=== PATIENT | male | born 2000 | race African-American/Black ===

== ENCOUNTER 2019-07-22 19:44 | Emergency (ER) | payer SELFPAY ==
--- NOTE | 2019-07-22 23:48 | PC.NURSE ---
I did not see this patient, registered for [facility], due to patient being discharged previous to discharge.
== END 2019-07-22 20:18 | disposition left against medical advice (07) ==
LOC: ER 23:47
PROVIDERS: Emergency Provider Emergency Medicine
DX: Z53.21 Procedure and treatment not carried out due to patient leaving prior to being seen by health care provider (principal)
CPT/HCPCS: 99281

== ENCOUNTER 2019-07-23 16:26 | Emergency (ER) | payer SELFPAY ==
[2019-07-23 17:47] VITALS: BP 121/73; RESP 16; TEMP 36.7; O2SAT 100; BMI 20.9
[2019-07-23 18:41] LABS: Add Urine Microscopic? NO
[2019-07-23 19:15] LABS: Bilirubin Urine Neg (NEGATIVE); Blood Urine Neg (Negative); Glucose Urine UA Norm (Normal); Ketones Urine 1+ (Negative); Leukocyte Esterase Urine Negative (Negative); Nitrate Urine Negative (Negative); Protein Urine Neg (Negative); Urine Appearance Clear (CLEAR); Urine Color Yellow (Yellow); Urobilinogen Urine Norm (Negative); pH Urine 6 (5-7)
== END 2019-07-23 21:13 | disposition left against medical advice (07) ==
PROVIDERS: Emergency Medicine; Emergency Provider Emergency Medicine
DX: Z53.21 Procedure and treatment not carried out due to patient leaving prior to being seen by health care provider (principal)
CPT/HCPCS: 81003; 99281

== ENCOUNTER 2019-07-24 14:53 | Emergency (ER) | payer SELFPAY ==
[2019-07-24 14:55] VITALS: BP 116/77; PULSE 71; RESP 16; TEMP 36.8; O2SAT 100; BMI 20.9
--- NOTE | 2019-07-24 15:11 | W.ED.MALEGU ---
HPI - Male Genitourinary General: Chief complaint: Urogenital-Male Stated complaint: Discharge Time Seen by Provider: 07/24/19 15:11 Source: patient Mode of arrival: ambulatory Limitations: no limitations History of Present Illness: HPI Narrative: clear to yellow penile drainage x 4 days; reports dysuria; no rashes/lesions; admits to new sexual partner over the past 2-3 wks; no testicular pain/swelling/redness/warmth Complaint: penile discharge, dysuria and possible STD exposure Onset (ago): day(s) Location: penis Relieving factors: none Exacerbating factors: none Associated symptoms: Reports no associated symptoms and dysuria Review of Systems Const: Denies: fever, chills or body aches ENMT: Denies: throat pain, painful swallowing or oral sores/lesions : Reports: painful urination and penile discharge; Denies: difficulty urinating, urinary frequency, urinary urgency, urinary hesitancy, urinary dribbling, genital pain, genital lesion, testicular pain, testicular mass, scrotal swelling, difficulty with ejactulations, painful ejaculations, blood in semen or erectile dysfunction Skin/Breast: Denies: rash, sores or new lesion PFSH ED PFSH: Statuses (acute, chronic, etc) shown below reflect problem list status as previously entered and may not be historically accurate Social History Smoking and tobacco status: never smoked Physical Exam Const: COMMON NORMALS: no apparent distress, average body habitus, oriented x3, healthy appearing, alert and well nourished GI: COMMON NORMALS: normal to inspection, nondistended, normoactive bowel sounds, soft to palpation and non-tender PALPATION: Yes soft : COMMON NORMALS: Yes testes normal, Yes scrotum normal and Yes no scrotal swelling PENIS: normal penis MEATUS: meatal discharge Neuro: COMMON NORMALS: oriented x3 SENSORIUM/ORIENTATION: Yes alert Skin: COMMON NORMALS: no rashes or lesions noted GENERAL SKIN EXAM: no rashes or lesions noted Course Vital Signs: Vital signs: Vital Signs Temperature 98.3 F 07/24/19 14:55 Pulse Rate 71 07/24/19 14:55 Respiratory Rate 16 07/24/19 14:55 Blood Pressure 116/77 07/24/19 14:55 Pulse Oximetry 100 07/24/19 14:55 Discharge Plan Discharge Patient Disposition: Home, Self-Care Clinical Impression: Discharge from penis Condition: Stable Discharge Orders: Discharge Order (Routine); Ordered 07/24/19 Ordered By: Tawana Sun Discharge Diet: Usual diet Discharge Activity: Resume usual activity Activity Restrictions/Additional Instructions: Call medical records in 2-3 days for results. No sexual activity until you get results-fi positive, [facility] make sure you cleared infection. If positive, you need to inform any sexual partners you have had. Coding Level of Care Code ED Certified Surgical First Assistant for Panfilo Rodriguez Exam Problem Focused
[2019-07-24] MEDS: cefTRIAXone 1,000 mg SDV 250 MG IM (15:49)
[2019-07-24] MEDS: lidocaine 1% INJ 20 mL IM (15:52)
[2019-07-24] MEDS: azithromycin 250 mg Tablet 1000 MG PO (16:03)
[2019-07-24 16:30] VITALS: BP 111/63; PULSE 82; RESP 14; TEMP 36.8
[2019-07-24 16:32] VITALS: BP 111/63; PULSE 82; RESP 14; TEMP 36.8; O2SAT 98
== END 2019-07-24 16:33 | disposition home or self-care (01) ==
PROVIDERS: Emergency Provider Physician Assistant
DX: R36.9 Urethral discharge, unspecified (principal)
CPT/HCPCS: 87491; 87591; 96372; 99282; J0696; J2001; Q0144

== ENCOUNTER 2019-07-26 17:57 | Emergency (ER) | payer SELFPAY ==
[2019-07-26 18:07] VITALS: BP 102/72; PULSE 79; RESP 17; TEMP 36.4; O2SAT 100; BMI 20.9
--- NOTE | 2019-07-26 18:24 | ED_ITS ---
HPI - Neck Pain/Injury General: Chief Complaint: Neck Pain/Injury Stated Complaint: lip lac Time Seen by Provider: 07/26/19 18:20 History of Present Illness: HPI Narrative: Patient ambulates in with complaint of neck and shoulder pain. Happened about 20 minutes ago. Patient states that he was playing football and somebody hit him in his head that was wearing a helmet while he did not have a helmet on. Said his neck hurt immediately. Denies LOC nausea or vomiting or vision changes. Does not have a headache. Does have an abrasion to his lower lip. complaint: neck pain and neck injury Onset (ago): minute(s) Place: school Radiation: right shoulder and left shoulder Severity: mild Severity scale (1-10): 3 Quality: dull Duration: constant Relieving factors: none Exacerbating factors: none Associated symptoms: Denies headache(s) or nausea Treatments prior to arrival: cervical collar Review of Systems Const: Denies: fever, chills or body aches Eyes: Denies: change in vision or blurry vision ENMT: Reports: other (Lower lip laceration); Denies: throat pain or nasal congestion Card: Denies: chest pain or shortness of breath on exertion Resp: Denies: shortness of breath, productive cough or non-productive cough GI: Denies: abdominal pain, nausea or vomiting : Denies: difficulty urinating Musc: Reports: other (Neck pain and bilateral trapezius pain); Denies: extremity pain Skin/Breast: Denies: rash Neuro: Denies: headache Psych: Denies: anxiety or depression Brad/Lymph: Denies: easy bruising PFSH ED PFSH: Statuses (acute, chronic, etc) shown below reflect problem list status as previously entered and may not be historically accurate Social History Smoking and tobacco status: never smoked Physical Exam Const: COMMON NORMALS: no apparent distress, average body habitus and oriented x3 HENMT: COMMON NORMALS: normocephalic HEAD & SCALP: normal to inspection and normocephalic FACE & SINUS: normal facial exam TEETH & GINGIVA: Yes other (Lower lip with abrasion to center no laceration.) Eye: COMMON NORMALS: conjunctivae normal GENERAL EYE: normal appearance of both eyes CONJUNCTIVA: Yes conjunctivae normal Neck/C-Spine: COMMON NORMALS: no JVD Chest: COMMONS NORMALS: inspection of chest normal Resp: COMMON NORMALS: normal respiratory effort and clear to auscultation bilaterally AUSCULTATION: clear to auscultation bilaterally Cardio: COMMON NORMALS: no JVD, regular rate and regular rhythm RATE: regular rate RHYTHM: regular rhythm GI: COMMON NORMALS: normal to inspection, nondistended, normoactive bowel sounds Back/Pelvis: OTHER: Tender to the trapezius bilateral no cervical spine pain. Extremity: COMMON NORMALS: normal to inspection and full ROM Neuro: COMMON NORMALS: oriented x3 and CN's II-XII intact bilaterally GAIT: Yes normal gait Course Vital Signs: Vital signs: Vital Signs Temperature 97.6 F 07/26/19 18:07 Pulse Rate 79 07/26/19 18:07 Respiratory Rate 17 07/26/19 18:07 Blood Pressure 102/72 07/26/19 18:07 Pulse Oximetry 100 07/26/19 18:07 Coding Level of Care Code ED Special Loan Officer for Panfilo Rodriguez
--- NOTE | 2019-07-26 18:24 | XRR_ITS ---
PROCEDURE INFORMATION: Exam: XR Cervical Spine, 2 or 3 Views Exam date and time: 07/26/2019 6:43 PM Age: 18 years old Clinical indication: Injury or trauma; Injury history: Direct blow to head while playing football; PT was wearing a helmet. C/O lower neck pain. 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 COMPARISON: No relevant prior studies available. FINDINGS: Vertebrae: Normal. No acute fracture. Straightening of the lordosis. Soft tissues: Normal. XR/XR cervical spine 3V* [id number] IMPRESSION: No fracture or subluxation.
[2019-07-26] MEDS: acetaminophen 500 mg Tablet 1000 MG PO (18:30)
[2019-07-26 19:17] VITALS: BP 124/78; PULSE 71; RESP 18; O2SAT 99
== END 2019-07-26 19:12 | disposition home or self-care (01) ==
PROVIDERS: Emergency Provider Nurse Practitioner Family
DX: M54.2 Cervicalgia (principal)
CPT/HCPCS: 72040; 99281; 99283